=== PATIENT | male | born 2000 | race Caucasian/White ===

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

== ENCOUNTER 2021-09-09 13:02 | Emergency (ER) | payer BC ==
[~2021-09-09] VITALS: Ht 182.9 cm; Wt 130.9 kg
[2021-09-09] MEDS ORDERED: LOMOTIL TABLET1 EACH PO (13:43)
[2021-09-09] MEDS ORDERED: ONDANSETRON ODT8 MG PO (13:43)
== END 2021-09-09 16:50 | disposition home or self-care (01) ==
LOC: ED 13:02
DX: K52.9 Noninfective gastroenteritis and colitis, unspecified (principal); Z88.0 Allergy status to penicillin
CPT/HCPCS: 36415; 80053; 81001; 83735; 85025; 96374; 96376; 99284-25; J2405; J7030; J7040